=== PATIENT | male | born 1995 | race African-American/Black ===

== ENCOUNTER 2021-03-17 13:13 | Emergency (ER) | payer MEDICARE, OTHER ==
[~2021-03-17] VITALS: Ht 170.2 cm; Wt 90.7 kg
[2021-03-17 13:56] LABS: BASOPHIL 0.7 % (0-2); EOSINOPHIL 2.1 % (0-5); HCT 49.4 % (42.0-52.0); HGB 17.4 g/dl (13.2-18.0); MCH 31.6 pg (25.0-31.0); MCHC 35.2 g/dL (32.0-36.0); MCV 89.8 fL (78.0-100.0); MONOCYTE 18.7 % (0-12); MPV 10.6 fL (6.0-9.5); NEUTROPHIL 53.8 % (41-80); NRBC 0; PLT 201 K/uL (150-400); RDW 12.3 % (11.5-14.0); WBC 2.8 K/uL (4.0-10.5)
[2021-03-17 13:57] LABS: BILIRUBIN 2+ mg/dL (NEGATIVE); BLOOD NEGATIVE Ery/uL (NEGATIVE); CLARITY CLEAR (CLEAR); COLOR YELLOW (YELLOW); GLUCOSE (U) NORMAL (NORMAL); LEUKOCYTES NEGATIVE Leu/uL (NEGATIVE); NITRITE NEGATIVE (NEGATIVE); PROTEIN NEGATIVE (NEGATIVE); SPECIFIC GRAVITY 1.015 (1.001-1.030)
[2021-03-17 14:34] LABS: ALBUMIN 3.4 g/dL (3.4-5.0); ALKALINE PHOSHATASE 109 U/L (46-116); ALT 102 U/L (16-63); AST 56 U/L (15-37); BILIRUBIN - TOTAL 11.3 mg/dL (0.2-1.0); BUN 19 mg/dL (7-18); BUN/CREAT RATIO (CALC) 18.6 RATIO; C-REACTIVE PROTEIN < 0.02 mg/dL (<=0.90); CHLORIDE 101 mmol/L (98-107); CO2 (BICARBONATE) 25 mmol/L (21-32); CREATININE 1.02 mg/dL (0.67-1.17); GLOBULIN (CALCULATION) 3.6 g/dL; GLUCOSE 112 mg/dL (74-106); POTASSIUM 4.3 mmol/L (3.5-5.1)
[2021-03-17 15:54] LABS: INR 0.98 (0.9-1.2); PROTHROMBIN TIME 12.4 SECONDS (11.8-13.4)
[2021-03-17 15:55] LABS: PTT 29.5 SECONDS (24.4-34.7)
[2021-03-20 05:08] LABS: HBSAG SCREEN Negative (Negative); HEP A AB, IGM Negative (Negative); HEP B CORE AB, IGM Negative (Negative); HEP C VIRUS AB 0.2 (0.0-0.9)
== END 2021-03-17 16:32 | disposition home or self-care (01) ==
LOC: FER 13:13
PROVIDERS: Internal Medicine
DX: M04.1 Periodic fever syndromes (principal); R17 Unspecified jaundice
CPT/HCPCS: 36415; 80053; 80074; 81003; 82140; 85025; 85610; 85730; 86140; J2930; J3490; J7030